=== PATIENT | female | born 1985 | race Caucasian/White ===

== ENCOUNTER 2018-01-22 10:49 | Observation (INO) | payer SELFPAY ==
[~2018-01-22] VITALS: Ht 157.5 cm; Wt 81.7 kg
[2018-01-22] VITALS (15 sets, daily range): BP systolic 90–121; BP diastolic 51–81
[~2018-01-22 10:49] MED LIST: AC325T; AMOX500C2 PO; HYDR-2890 PO; HYDR-3720 PO; PRD10T PO; PREN1TAB14
[2018-01-22] MEDS ORDERED: ACETAMINOPHEN 500 MG TAB (TYLENOL) PO PRN (12:15)
[2018-01-22] MEDS ORDERED: ONDANSETRON 4 MG/2 ML (SDV) Z0FRAN IVP PRN (12:15)
[2018-01-22 13:24] LABS: BASOPHILS % (AUTO) 0 % (0-10); EOSINOPHILS % (AUTO) 0 % (0-10); HEMATOCRIT 40 % (35-52); HEMOGLOBIN 13.8 G/DL (11.5-16.0); LYMPHOCYTES # (AUTO) 2.1 X 10^3 (1.0-4.0); LYMPHOCYTES % (AUTO) 28 % (12-44); MEAN CORPUSCULAR HEMOGLOBIN 33 PG (25-34); MEAN CORPUSCULAR HGB CONC 35 G/DL (32-36); MEAN CORPUSCULAR VOLUME 94 FL (80-99); MEAN PLATELET VOLUME 10.6 FL (7.4-10.4); MONOCYTES # (AUTO) 0.3 X 10^3 (0.0-1.0); MONOCYTES % (AUTO) 5 % (0-12); NEUTROPHILS % (AUTO) 67 % (42-75); PLATELET COUNT 194 10^3/uL (130-400); RED BLOOD COUNT 4.24 10^6/uL (4.35-5.85); RED CELL DISTRIBUTION WIDTH 11.9 % (10.0-14.5); WHITE BLOOD COUNT 7.5 10^3/uL (4.3-11.0)
[2018-01-22] MEDS ORDERED: CATHETER FLUSH 10 ML SYR IV PRN (13:30)
[2018-01-22] MEDS: NS IV 1000 ML 1,000 ML IV SCH ×2 (13:32→17:55)
[2018-01-22 13:46] LABS: ALANINE AMINOTRANSFERASE 15 U/L (0-55); ALBUMIN 3.8 GM/DL (3.2-4.5); ALKALINE PHOSPHATASE 71 U/L (40-136); BILIRUBIN,TOTAL 0.4 MG/DL (0.1-1.0); BUN/CREATININE RATIO 12; CARBON DIOXIDE 21 MMOL/L (21-32); CHLORIDE 108 MMOL/L (98-107); CREATININE SERUM 0.65 MG/DL (0.60-1.30); GFR ESTIMATED > 60; GLUCOSE 113 MG/DL (70-105); POTASSIUM 4.1 MMOL/L (3.6-5.0); SODIUM 138 MMOL/L (135-145); TOTAL PROTEIN 6.3 GM/DL (6.4-8.2)
[2018-01-22] MEDS ORDERED: FLU QUADRIvalent (5+ YOA) 2018-2019 (AFLURIA) 0.5 ML IM ONE ×2 (14:30→18:31)
[2018-01-22] MEDS ORDERED: RT-ALBUTEROL SULF 2.5 MG/3 ML PRE-MIX VIAL INH PRN (16:15)
[2018-01-23] VITALS (22 sets, daily range): BP systolic 80–124; BP diastolic 46–81
[2018-01-23] MEDS: NS IV 1000 ML 1,000 ML IV SCH ×2 (03:04→11:33)
[2018-01-23 03:52] LABS: BASOPHILS % (AUTO) 0 % (0-10); EOSINOPHILS # (AUTO) 0.1 10^3/uL (0.0-0.3); EOSINOPHILS % (AUTO) 2 % (0-10); HEMATOCRIT 38 % (35-52); HEMOGLOBIN 12.6 G/DL (11.5-16.0); LYMPHOCYTES # (AUTO) 3.5 X 10^3 (1.0-4.0); LYMPHOCYTES % (AUTO) 60 % (12-44); MEAN CORPUSCULAR HEMOGLOBIN 32 PG (25-34); MEAN CORPUSCULAR HGB CONC 33 G/DL (32-36); MEAN CORPUSCULAR VOLUME 96 FL (80-99); MEAN PLATELET VOLUME 10.9 FL (7.4-10.4); MONOCYTES # (AUTO) 0.3 X 10^3 (0.0-1.0); MONOCYTES % (AUTO) 6 % (0-12); NEUTROPHILS # (AUTO) 1.9 X 10^3 (1.8-7.8); NEUTROPHILS % (AUTO) 33 % (42-75); PLATELET COUNT 158 10^3/uL (130-400); RED BLOOD COUNT 3.98 10^6/uL (4.35-5.85); RED CELL DISTRIBUTION WIDTH 11.9 % (10.0-14.5); WHITE BLOOD COUNT 5.8 10^3/uL (4.3-11.0)
[2018-01-23 04:11] LABS: ALANINE AMINOTRANSFERASE 13 U/L (0-55); ALBUMIN 3.3 GM/DL (3.2-4.5); ALKALINE PHOSPHATASE 67 U/L (40-136); BILIRUBIN,TOTAL 0.4 MG/DL (0.1-1.0); BUN/CREATININE RATIO 13; CALCIUM 8.5 MG/DL (8.5-10.1); CARBON DIOXIDE 20 MMOL/L (21-32); CHLORIDE 113 MMOL/L (98-107); CREATININE SERUM 0.62 MG/DL (0.60-1.30); GFR ESTIMATED > 60; GLUCOSE 98 MG/DL (70-105); MAGNESIUM 1.8 MG/DL (1.8-2.4); POTASSIUM 4.1 MMOL/L (3.6-5.0); SODIUM 140 MMOL/L (135-145); TOTAL PROTEIN 5.2 GM/DL (6.4-8.2)
[2018-01-23] MEDS ORDERED: KCL 20 MEQ TAB (K-DUR) PO SCH (06:00)
[2018-01-23] MEDS ORDERED: MAGNESIUM 1 GM/100 ML IVPB 100 ML IV SCH (06:00)
[2018-01-23] MEDS ORDERED: POTASSIUM CL 10MEQ/50ML IVPB 50 ML IV SCH (06:00)
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
[2018-01-23] MEDS ORDERED: PENI250T2 PO (10:05)
[2018-01-23] MEDS: PENICILLIN V K 250 MG TAB PO SCH ×2 (10:26→16:56)
[2018-01-23] MEDS ORDERED: NITROGLYCERIN 0.4 MG SL TABS BTL 25'S SL ONE (11:49)
--- NOTE | 2018-01-23 11:56 | Consultation-Cardiology ---
HPI-Cardiology Cardiology Consultation Date of Consultation 01/23/18 Date of Admission Time Seen by Provider: 11:50 Indication: Chest pain HPI 33 years old lady with no significant past history, patient was under increasing social stress, she took 20 tablets of Guanfacine, transferred from [facility], reporting chest pain on and off since she took the pills. Describing dull achiness on the left side of her chest not radiating. Waxing and waning. No palpitation. No syncope or near syncopal episodes. No claudications Home Medications & Allergies Allergies: Coded Allergies: NKANo Known Allergies (Verified Allergy, Unknown, 03/06/06) Home Medication List Reviewed: Yes SSR-Bxvmzn-Ywuwdy Hx Patient Social History Alcohol Use: Denies Use Recreational Drug Use: Yes (Patient states she is a recovering meth user) Drug of Choice: Methamphetamines, marijuana Smoking Status: Current Everyday Smoker Type Used: Cigarettes Recent Foreign Travel: No Recent Infectious Disease Expo: No Recent Hopitalizations: No Physical Abuse Screen: No Sexual Abuse: No Past Medical History No known past medical history Family Medical History Family Medical Hx Noncontributory to her current condition Review of Systems Constitutional: see HPI EENTM: see HPI Respiratory: see HPI Cardiovascular: see HPI, chest pain Gastrointestinal: see HPI Genitourinary: see HPI Musculoskeletal: see HPI Skin: see HPI Psychiatric/Neurological: No Symptoms Reported, See HPI Reviewed Test Results Reviewed Test Results Lab Laboratory Tests Test 01/22/18 13:15 01/23/18 03:00 Range/Units White Blood Count 7.5 5.8 4.3-11.0 10^3/uL Red Blood Count 4.24 L 3.98 L 4.35-5.85 10^6/uL Hemoglobin 13.8 12.6 11.5-16.0 G/DL Hematocrit 40 38 35-52 % Mean Corpuscular Volume 94 96 80-99 FL Mean Corpuscular Hemoglobin 33 32 25-34 PG Mean Corpuscular Hemoglobin Concent 35 33 32-36 G/DL Red Cell Distribution Width 11.9 11.9 10.0-14.5 % Platelet Count 194 158 130-400 10^3/uL Mean Platelet Volume 10.6 H 10.9 H 7.4-10.4 FL Neutrophils (%) (Auto) 67 33 L 42-75 % Lymphocytes (%) (Auto) 28 60 H 12-44 % Monocytes (%) (Auto) 5 6 0-12 % Eosinophils (%) (Auto) 0 2 0-10 % Basophils (%) (Auto) 0 0 0-10 % Neutrophils # (Auto) 5.0 1.9 1.8-7.8 X 10^3 Lymphocytes # (Auto) 2.1 3.5 1.0-4.0 X 10^3 Monocytes # (Auto) 0.3 0.3 0.0-1.0 X 10^3 Eosinophils # (Auto) 0.0 0.1 0.0-0.3 10^3/uL Basophils # (Auto) 0.0 0.0 0.0-0.1 10^3/uL Sodium Level 138 140 135-145 MMOL/L Potassium Level 4.1 4.1 3.6-5.0 MMOL/L Chloride Level 108 H 113 H 98-107 MMOL/L Carbon Dioxide Level 21 20 L 21-32 MMOL/L Anion Gap 9 7 5-14 MMOL/L Blood Urea Nitrogen 8 8 7-18 MG/DL Creatinine 0.65 0.62 0.60-1.30 MG/DL Estimat Glomerular Filtration Rate > 60 > 60 BUN/Creatinine Ratio 12 13 Glucose Level 113 H 98 70-105 MG/DL Calcium Level 9.0 8.5 8.5-10.1 MG/DL Corrected Calcium 9.2 9.1 8.5-10.1 MG/DL Total Bilirubin 0.4 0.4 0.1-1.0 MG/DL Aspartate Amino Transf (AST/SGOT) 13 11 5-34 U/L Alanine Aminotransferase (ALT/SGPT) 15 13 0-55 U/L Alkaline Phosphatase 71 67 40-136 U/L Total Protein 6.3 L 5.2 L 6.4-8.2 GM/DL Albumin 3.8 3.3 3.2-4.5 GM/DL Magnesium Level 1.8 1.8-2.4 MG/DL Physical Exam Vital Signs Vital Signs - First Documented 01/22/18 01/22/18 13:15 16:34 Temp 98.6 Resp 17 Capillary Refill : Height, Weight, BMI Height: 5'2.00" Weight: 180lbs. 1.0oz. [id number]; 31.9 BMI Method:Stated General Appearance: No Apparent Distress, WD/WN Eyes: Bilateral Eye Normal Inspection, Bilateral Eye PERRL, Bilateral Eye EOMI HEENT: PERRL/EOMI, TMs Normal, Normal ENT Inspection, Pharynx Normal Neck: Full Range of Motion, Normal Inspection, Non Tender, Supple, Carotid Bruit Respiratory: Chest Non Tender, Lungs Clear, Normal Breath Sounds, No Accessory Muscle Use, No Respiratory Distress Cardiovascular: Regular Rate, Rhythm, No Edema, No Gallop, No JVD, No Murmur, Normal Peripheral Pulses Gastrointestinal: Normal Bowel Sounds, No Organomegaly, No Pulsatile Mass, Non Tender, Soft Back: Normal Inspection, No CVA Tenderness, No Vertebral Tenderness Extremity: Normal Capillary Refill, Normal Inspection, Normal Range of Motion, Non Tender, No Calf Tenderness, No Pedal Edema Neurologic/Psychiatric: Alert, Oriented x3, No Motor/Sensory Deficits, Normal Mood/Affect Skin: Normal Color, Warm/Dry Lymphatic: No Adenopathy A/P-Cardiology Admission Diagnosis Chest pain Bradycardia Suicidal attempt Tobaccoism Assessment/Plan Chest pain nonspecific etiology, has been having since she took the tablet. EKG did not show any acute abnormality, I will evaluate troponin level given her one sublingual nitroglycerin Mild bradycardia. Continue to monitor heart rate. Suicidal attempt with taking 20 tablets of Guanfacine, monitored and followed by primary care physician Borderline hypotension, continue on IV fluid and monitor blood pressure Tobaccoism, educated on smoking cessation Clinical Quality Measures DVT/VTE Risk/Contraindication: Risk Factor Score Per Nursin RFS Level Per Nursing on Admit: 1=Low/No VTE PPX JAMES SHANKS MD Jan 23, 2018 11:56
[2018-01-23] MEDS ORDERED: NITROGLYCERIN 0.4 MG SL TABS BTL 25'S SL PRN ×2 (12:00)
== END 2018-01-23 10:06 | disposition home or self-care (01) ==
LOC: UNDOADMOB 12:24 → ICU 12:24 → UNDODISOB 01-23 17:00
PROVIDERS: ADMIT Internal Medicine; ATTEND Internal Medicine
DX: T50.992A Poisoning by other drugs, medicaments and biological substances, intentional self-harm, initial encounter (principal); R00.1 Bradycardia, unspecified; I95.9 Hypotension, unspecified; F15.10 Other stimulant abuse, uncomplicated; K04.7 Periapical abscess without sinus; F17.210 Nicotine dependence, cigarettes, uncomplicated
CPT/HCPCS: 36415; 80053; 83735; 84484; 85025; 90686; 93005; 99211; G0378

== ENCOUNTER 2018-08-27 13:49 | Observation (INO) | payer SELFPAY ==
[~2018-08-27] VITALS: Ht 157.5 cm; Wt 73.5 kg
[2018-08-27] VITALS (7 sets, daily range): BP systolic 103–132; BP diastolic 64–90
[~2018-08-27 13:49] MED LIST changes: +PENI250T2 PO
[2018-08-27] MEDS ORDERED: LACTATED RINGERS 1,000 ML IV ONE (14:11)
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
--- NOTE | 2018-08-27 14:25 | NUR ---
poision control contacted at [phone]
[2018-08-27 14:30] LABS: BASOPHILS % (AUTO) 1 % (0-10); EOSINOPHILS # (AUTO) 0.1 10^3/uL (0.0-0.3); EOSINOPHILS % (AUTO) 2 % (0-10); HEMATOCRIT 43 % (35-52); HEMOGLOBIN 15.1 G/DL (11.5-16.0); LYMPHOCYTES # (AUTO) 2.3 X 10^3 (1.0-4.0); LYMPHOCYTES % (AUTO) 38 % (12-44); MEAN CORPUSCULAR HEMOGLOBIN 32 PG (25-34); MEAN CORPUSCULAR HGB CONC 35 G/DL (32-36); MEAN CORPUSCULAR VOLUME 92 FL (80-99); MEAN PLATELET VOLUME 10.9 FL (7.4-10.4); MONOCYTES # (AUTO) 0.5 X 10^3 (0.0-1.0); MONOCYTES % (AUTO) 8 % (0-12); NEUTROPHILS # (AUTO) 3.2 X 10^3 (1.8-7.8); NEUTROPHILS % (AUTO) 52 % (42-75); PLATELET COUNT 174 10^3/uL (130-400); RED CELL DISTRIBUTION WIDTH 12.1 % (10.0-14.5); WHITE BLOOD COUNT 6.1 10^3/uL (4.3-11.0)
--- NOTE | 2018-08-27 14:34 | NUR ---
Pt. taken to CT.
[2018-08-27 14:44] LABS: PROTHROMBIN TIME PATIENT 13.5 SEC (12.2-14.7)
[2018-08-27 14:49] LABS: ALANINE AMINOTRANSFERASE 28 U/L (0-55); ALBUMIN 4.4 GM/DL (3.2-4.5); ALKALINE PHOSPHATASE 97 U/L (40-136); BILIRUBIN,TOTAL 0.6 MG/DL (0.1-1.0); BUN/CREATININE RATIO 19; CALCIUM 9.6 MG/DL (8.5-10.1); CARBON DIOXIDE 19 MMOL/L (21-32); CHLORIDE 112 MMOL/L (98-107); CREATININE SERUM 0.79 MG/DL (0.60-1.30); GFR ESTIMATED > 60; GLUCOSE 77 MG/DL (70-105); MAGNESIUM 2.2 MG/DL (1.8-2.4); POTASSIUM 3.5 MMOL/L (3.6-5.0); SALICYLATE < 5.0 MG/DL (5.0-20.0); SODIUM 141 MMOL/L (135-145)
[2018-08-27 14:50] LABS: ACETAMINOPHEN < 10 UG/ML (10-30)
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
--- NOTE | 2018-08-27 15:02 | Diagnostic Imaging Report ---
Indication: Left shoulder injury 3 views of the left shoulder show no fracture, dislocation or other acute abnormalities. Impression: Negative left shoulder Dictated by: Dictated on workstation # [id number]
[2018-08-27 15:09] LABS: TSH (THYROID ANALYZER) 1.17 UIU/ML (0.35-4.94)
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
--- NOTE | 2018-08-27 15:54 | NUR ---
Report called to Lili ALMANZAR.
[2018-08-27 16:09] LABS: CLARITY,URINE CLEAR; COLOR,URINE AMBER; GLUCOSE, URINE (UA) NEGATIVE (NEGATIVE); KETONES,URINE 1+ (NEGATIVE); LEUKOCYTE ESTERASE ,URINE 1+ (NEGATIVE); NITRITE,URINE NEGATIVE (NEGATIVE); PH,URINE 5 (5-9); PROTEIN,URINE 2+ (NEGATIVE); UROBILINOGEN,URINE 1 MG/DL (NORMAL)
[2018-08-27 16:20] LABS: AMPHETAMINE SCREEN, URINE POSITIVE (NEGATIVE); BARBITURATE SCREEN URINE NEGATIVE (NEGATIVE); BENZODIAZEPINES SCREEN URINE NEGATIVE (NEGATIVE); CANNABINOID SCREEN, URINE POSITIVE (NEGATIVE); COCAINE SCREEN URINE NEGATIVE (NEGATIVE); METHADONE STAT NEGATIVE (NEGATIVE); METHAMPHETAMINE SCREEN URINE S POSITIVE (NEGATIVE); OPIATE SCREEN URINE NEGATIVE (NEGATIVE); OXYCODONE STAT NEGATIVE (NEGATIVE); PROPOXYPHENE STAT NEGATIVE (NEGATIVE); TRICYCLIC ANTIDEPRESSANTS SCRE NEGATIVE (NEGATIVE)
[2018-08-27 16:25] LABS: BILIRUBIN,URINE 1+ (NEGATIVE); WBC,URINE RARE /HPF
[2018-08-27 16:26] LABS: BACTERIA,URINE NEGATIVE /HPF
[2018-08-27] MEDS ORDERED: ACETAMINOPHEN 500 MG TAB (TYLENOL) PO PRN (16:45)
[2018-08-27] MEDS ORDERED: CATHETER FLUSH 10 ML SYR IV PRN (17:00)
[2018-08-27] MEDS: LACTATED RINGERS 1,000 ML IV SCH (17:23)
[2018-08-27] MEDS ORDERED: OFLOXACIN 0.3% OPHTH SOLN 5 ML OP SCH (21:00)
[2018-08-28] VITALS (9 sets, daily range): BP systolic 108–127; BP diastolic 72–87
[2018-08-28] MEDS: LACTATED RINGERS 1,000 ML IV SCH (00:20)
[2018-08-28 03:24] LABS: BASOPHILS % (AUTO) 0 % (0-10); EOSINOPHILS # (AUTO) 0.2 10^3/uL (0.0-0.3); EOSINOPHILS % (AUTO) 4 % (0-10); HEMATOCRIT 36 % (35-52); HEMOGLOBIN 12.4 G/DL (11.5-16.0); LYMPHOCYTES # (AUTO) 3.1 X 10^3 (1.0-4.0); LYMPHOCYTES % (AUTO) 59 % (12-44); MEAN CORPUSCULAR HEMOGLOBIN 32 PG (25-34); MEAN CORPUSCULAR HGB CONC 34 G/DL (32-36); MEAN CORPUSCULAR VOLUME 94 FL (80-99); MEAN PLATELET VOLUME 10.5 FL (7.4-10.4); MONOCYTES # (AUTO) 0.4 X 10^3 (0.0-1.0); MONOCYTES % (AUTO) 8 % (0-12); NEUTROPHILS # (AUTO) 1.6 X 10^3 (1.8-7.8); NEUTROPHILS % (AUTO) 30 % (42-75); PLATELET COUNT 160 10^3/uL (130-400); RED CELL DISTRIBUTION WIDTH 12.1 % (10.0-14.5); WHITE BLOOD COUNT 5.2 10^3/uL (4.3-11.0)
[2018-08-28 03:44] LABS: ALANINE AMINOTRANSFERASE 19 U/L (0-55); ALBUMIN 3.3 GM/DL (3.2-4.5); ALKALINE PHOSPHATASE 71 U/L (40-136); BILIRUBIN,TOTAL 0.6 MG/DL (0.1-1.0); BUN/CREATININE RATIO 28; CARBON DIOXIDE 18 MMOL/L (21-32); CHLORIDE 111 MMOL/L (98-107); CREATININE SERUM 0.58 MG/DL (0.60-1.30); GFR ESTIMATED > 60; GLUCOSE 81 MG/DL (70-105); MAGNESIUM 1.6 MG/DL (1.8-2.4); PHOSPHORUS 3.1 MG/DL (2.3-4.7); POTASSIUM 3.8 MMOL/L (3.6-5.0); SODIUM 138 MMOL/L (135-145)
[2018-08-28] MEDS ORDERED: MAGNESIUM 1 GM/100 ML IVPB 100 ML IV SCH ×2 (04:45→06:00)
[2018-08-28] MEDS ORDERED: MAGNESIUM 1 GM/100 ML IVPB 200 ML IV ONE (04:47)
[2018-08-28] MEDS ORDERED: POTASSIUM CL 10MEQ/50ML IVPB 50 ML IV SCH (06:00)
[2018-08-28] MEDS ORDERED: KCL 20 MEQ TAB (K-DUR) PO SCH (06:00)
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
--- NOTE | 2018-08-28 09:41 | NUR ---
Call placed to refer patient for eval through [facility] at [phone]. Screener will return call.
[2018-08-28] MEDS ORDERED: OFL.3OP5 OT (10:21)
--- NOTE | 2018-08-28 10:23 | Discharge Inst-Simple/Standard ---
Discharge Inst-Standard Patient Instructions/Follow Up Plan of Care/Instructions/FU: Please continue to take your medications as written. Please follow up with Dr Lam as scheduled. Please establish care for a primary care doctor to follow up this hospital stay and for regular preventative care. Activity as Tolerated: Yes Discharge Diet: No Restrictions Return to The Hospital For: Thoughts of self harm, confusion, worsening pain, if you feel you are getting worse. ANNE CROOK MD Aug 28, 2018 10:23
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
--- NOTE | 2018-08-28 12:15 | NUR ---
Website Project Manager here for screening from [facility]. Patient allowed screener in room for discussion of after care and she agreed to outpatient treatment.
== END 2018-08-28 12:44 | disposition home or self-care (01) ==
LOC: EDUNIT# 13:49 → ER 13:50 → ICU 15:30 → 4TH 08-28 07:29
PROVIDERS: ADMIT Family Medicine; ATTEND Family Medicine
DX: T45.0X2A Poisoning by antiallergic and antiemetic drugs, intentional self-harm, initial encounter (principal); T74.11XA Adult physical abuse, confirmed, initial encounter; S00.402A Unspecified superficial injury of left ear, initial encounter; E83.42 Hypomagnesemia; M54.2 Cervicalgia; M25.512 Pain in left shoulder; F15.90 Other stimulant use, unspecified, uncomplicated; F17.210 Nicotine dependence, cigarettes, uncomplicated; Y04.0XXA Assault by unarmed brawl or fight, initial encounter; Y07.03 Male partner, perpetrator of maltreatment and neglect; Y92.019 Unspecified place in single-family (private) house as the place of occurrence of the external cause
CPT/HCPCS: 36415; 70450; 70486; 71045; 72125; 73030; 80053; 80306; 80320; 80329; 81000; 83735; 84100; 84443; 84703; 85025; 85610; 85730; 87081; 93005; 93041; 96360; G0378

== ENCOUNTER 2019-07-14 04:29 | Emergency (ER) | payer SELFPAY ==
[2019-07-14] VITALS (10 sets, daily range): BP systolic 111–124; BP diastolic 59–90
[~2019-07-14] VITALS: Ht 157.4 cm; Wt 80.2 kg
[~2019-07-14 04:29] MED LIST changes: +OFL.3OP5 OT
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
[2019-07-14] MEDS ORDERED: NS IV 1000 ML 1,000 ML IV SCH (04:55)
[2019-07-14] MEDS ORDERED: ACETAMINOPHEN 500 MG TAB (TYLENOL) PO ONE (05:00)
[2019-07-14 06:14] LABS: BASOPHILS % (AUTO) 0 % (0-10); EOSINOPHILS % (AUTO) 0 % (0-10); HEMATOCRIT 39 % (35-52); HEMOGLOBIN 13.5 G/DL (11.5-16.0); LYMPHOCYTES # (AUTO) 1.2 X 10^3 (1.0-4.0); LYMPHOCYTES % (AUTO) 11 % (12-44); MEAN CORPUSCULAR HEMOGLOBIN 32 PG (25-34); MEAN CORPUSCULAR HGB CONC 34 G/DL (32-36); MEAN CORPUSCULAR VOLUME 94 FL (80-99); MEAN PLATELET VOLUME 10.7 FL (7.4-10.4); MONOCYTES # (AUTO) 0.8 X 10^3 (0.0-1.0); MONOCYTES % (AUTO) 7 % (0-12); NEUTROPHILS % (AUTO) 82 % (42-75); PLATELET COUNT 180 10^3/uL (130-400); RED CELL DISTRIBUTION WIDTH 12.1 % (10.0-14.5)
[2019-07-14 06:17] LABS: BILIRUBIN,URINE NEGATIVE (NEGATIVE); CLARITY,URINE CLEAR; COLOR,URINE YELLOW; GLUCOSE, URINE (UA) NEGATIVE (NEGATIVE); KETONES,URINE NEGATIVE (NEGATIVE); LEUKOCYTE ESTERASE ,URINE NEGATIVE (NEGATIVE); NITRITE,URINE NEGATIVE (NEGATIVE); PROTEIN,URINE TRACE (NEGATIVE)
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
[2019-07-14 06:27] LABS: BARBITURATE SCREEN URINE NEGATIVE (NEGATIVE); BENZODIAZEPINES SCREEN URINE NEGATIVE (NEGATIVE); CANNABINOID SCREEN, URINE POSITIVE (NEGATIVE); COCAINE SCREEN URINE NEGATIVE (NEGATIVE); METHADONE STAT NEGATIVE (NEGATIVE); OPIATE SCREEN URINE NEGATIVE (NEGATIVE); OXYCODONE STAT NEGATIVE (NEGATIVE); PROPOXYPHENE STAT NEGATIVE (NEGATIVE); TRICYCLIC ANTIDEPRESSANTS SCRE NEGATIVE (NEGATIVE)
[2019-07-14 06:28] LABS: AMPHETAMINE SCREEN, URINE POSITIVE (NEGATIVE); METHAMPHETAMINE SCREEN URINE S POSITIVE (NEGATIVE)
[2019-07-14 06:40] LABS: ALBUMIN 3.9 GM/DL (3.2-4.5); BACTERIA,URINE FEW /HPF; CHLORIDE 104 MMOL/L (98-107); POTASSIUM 3.8 MMOL/L (3.6-5.0); RBC,URINE 0-2 /HPF; SODIUM 135 MMOL/L (135-145); WBC,URINE 0-2 /HPF
[2019-07-14 06:42] LABS: CALCIUM 8.7 MG/DL (8.5-10.1)
[2019-07-14 06:43] LABS: GLUCOSE 94 MG/DL (70-105); TOTAL PROTEIN 6.8 GM/DL (6.4-8.2)
[2019-07-14 06:44] LABS: CARBON DIOXIDE 21 MMOL/L (21-32)
[2019-07-14 06:45] LABS: BILIRUBIN,TOTAL 0.3 MG/DL (0.1-1.0)
[2019-07-14 06:46] LABS: ALKALINE PHOSPHATASE 72 U/L (40-136)
[2019-07-14 06:47] LABS: CREATININE SERUM 0.71 MG/DL (0.60-1.30); FIBRIN DEGRADATION PRODUCTS 0.6 UG/ML (0.00-0.49); GFR ESTIMATED > 60; INR 1.1 (0.8-1.4); PROTHROMBIN TIME PATIENT 14.5 SEC (12.2-14.7)
[2019-07-14 06:48] LABS: BUN/CREATININE RATIO 13
[2019-07-14 06:50] LABS: ALANINE AMINOTRANSFERASE 16 U/L (0-55)
[2019-07-14] MEDS ORDERED: AZITHROMYCIN 250 MG TAB (ZITHROMAX) PO STA (06:59)
[2019-07-14] MEDS ORDERED: cefTRIAXone FOR IV USE 1,000 MG in WATER (STERILE) FOR INJECTION 10 ML IV ONE (07:00)
[2019-07-14] MEDS ORDERED: CEFD300C3 PO (07:02)
[2019-07-14] MEDS ORDERED: BENZ100C18 PO (07:02)
[2019-07-14] MEDS ORDERED: AZIT500T PO (07:02)
[2019-07-14] MEDS ORDERED: GUAI1TBM19 PO (07:02)
[2019-07-14 07:03] LABS: ERYTHROCYTE SEDIMENTATION RATE 34 MM/HR (0-20)
[2019-07-14] MEDS ORDERED: ONDANSETRON 4 MG/2 ML (SDV) Z0FRAN ONE (07:13)
[2019-07-14] MEDS ORDERED: ONDA4TAB11 PO (07:21)
[2019-07-14] MEDS ORDERED: ONDANSETRON 4 MG/2 ML (SDV) Z0FRAN IVP ONE (07:30)
--- NOTE | 2019-07-14 07:33 | Diagnostic Imaging Report ---
CHEST 1 VIEW, AP/PA ONLY Indication: Shortness of air Comparison: 08/27/2018 Findings: No focal airspace disease in the visualized lungs. Please note that the posterior lower lobes are poorly evaluated by portable radiography. No pleural effusion or pneumothorax. Normal cardiomediastinal silhouette. Impression: 1. No acute cardiopulmonary process by portable radiography. Dictated by: Dictated on workstation # [id number]
[2019-07-15 12:38] LABS: PARAINFLU 1 PCR Not Detected (Not Detected); PARAINFLU 2 PCR Not Detected (Not Detected)
== END 2019-07-14 07:45 | disposition home or self-care (01) ==
LOC: EDUNIT# 04:29 → ER 04:33
DX: J06.9 Acute upper respiratory infection, unspecified (principal); F12.90 Cannabis use, unspecified, uncomplicated; F15.90 Other stimulant use, unspecified, uncomplicated; F17.210 Nicotine dependence, cigarettes, uncomplicated; Z20.828 Contact with and (suspected) exposure to other viral communicable diseases
CPT/HCPCS: 36415; 71045; 80053; 80306; 80320; 81000; 83605; 83615; 83880; 84145; 84484; 84703; 85025; 85379; 85610; 85652; 85730; 86141; 86308; 87040; 87088; 87430; 87631; 87635; 87798; 87804; 93041

== ENCOUNTER 2021-07-13 19:32 | Emergency (ER) | payer SELFPAY ==
[~2021-07-13] VITALS: Ht 162.5 cm; Wt 82.6 kg
[~2021-07-13 19:32] MED LIST changes: +AZIT500T PO; +BENZ100C18 PO; +CEFD300C3 PO; +GUAI1TBM19 PO; +ONDA4TAB11 PO
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
[2021-07-13] MEDS ORDERED: TETANUS,DIPTH,PERTUSS P/F (BOOSTRIX) 0.5 ML VIAL IM ONE ×2 (20:00→20:07)
[2021-07-13] MEDS ORDERED: DOXY-311 PO (20:02)
[2021-07-13 20:13] VITALS: BP 100/80
== END 2021-07-13 20:13 | disposition home or self-care (01) ==
LOC: EDUNIT# 19:32 → ER 19:34
DX: S41.132A Puncture wound without foreign body of left upper arm, initial encounter (principal); S51.032A Puncture wound without foreign body of left elbow, initial encounter; F17.210 Nicotine dependence, cigarettes, uncomplicated; Z86.14 Personal history of Methicillin resistant Staphylococcus aureus infection; Z23 Encounter for immunization; X99.1XXA Assault by knife, initial encounter
CPT/HCPCS: 90715; 99284